=== PATIENT | female | born 2000 | race Caucasian/White ===

== ENCOUNTER 2018-10-04 06:03 | Emergency (ER) | payer OTHER ==
[~2018-10-04] VITALS: Ht 149.9 cm; Wt 50.0 kg
[2018-10-04] MEDS ORDERED: MULTI VITAMINS1 TAB PO (06:35)
[2018-10-04 06:38] LABS: BASO % 0.2 % (0.0-2.0); GRAN # 4.1 (1.4-6.5); GRAN % 75.8 % (42.2-75.2); HEMATOCRIT 43.1 % (35.0-45.0); HEMOGLOBIN 14.7 g/dl (12.0-15.0); LYMPH # 1.1 (1.2-3.4); LYMPH % 20.8 % (20.0-51.0); MEAN CELL VOLUME 89 fl (80.0-95.0); MEAN CORPUSCULAR HEMOGLOBIN 31 pg (26.0-32.0); MEAN CORPUSCULAR HGB CONC 34 g/dl (33.0-37.0); MEAN PLATELET VOLUME 9.7 fl (7.4-10.4); MONO # 0.2 (0.1-0.6); PLATELET COUNT 295 K/mm3 (130-400); RED BLOOD COUNT 4.82 M/mm3 (4.10-5.30); REDCELL DISTRIBUTION WIDTH-CV 12.4 % (11.5-14.5)
[2018-10-04 06:52] LABS: ALBUMIN 4.3 gm/dL (3.5-5.0); BILIRUBIN,TOTAL 0.4 mg/dL (0.0-1.0); C-REACTIVE PROTEIN 2.5 mg/dL (0.0-0.9); CALCIUM 9.7 mg/dL (8.4-10.2); CREATININE, serum 0.75 (0.52-1.25); POTASSIUM 3.7 mmol/L (3.4-5.0); TOTAL PROTEIN 7.5 gm/dL (6.4-8.2)
[2018-10-04 07:08] LABS: COLLECTION METHOD CLEAN CATCH
[2018-10-04 07:23] LABS: MUCOUS Present /lpf; PH 5 (5-8); URINE APPEARANCE Hazy; URINE BACTERIA Rare /hpf; URINE BILIRUBIN Negative (NEGATIVE); URINE BLOOD Negative (NEGATIVE); URINE COLOR Yellow; URINE GLUCOSE Negative (NEGATIVE); URINE KETONE 1+ (NEGATIVE); URINE LEUKOCYTE ESTERASE Trace (NEGATIVE); URINE NITRATE Negative (NEGATIVE); URINE PROTEIN(semi-quant) 1+ (NEGATIVE); URINE UROBILINOGEN Negative (NEGATIVE)
[2018-10-04] MEDS ORDERED: MACROBID 1100 MG/CAP PO (07:48)
[2018-10-04 09:02] VITALS: BP 123/96; PULSE 116; TEMP 101.8
== END 2018-10-04 09:09 | disposition home or self-care (01) ==
LOC: COL.ER 06:03
PROVIDERS: Emergency Medicine
DX: K52.9 Noninfective gastroenteritis and colitis, unspecified (principal); N39.0 Urinary tract infection, site not specified; F12.90 Cannabis use, unspecified, uncomplicated
CPT/HCPCS: J2405; J7030; J7040